=== PATIENT | female | born 1975 | race American Indian/Alaskan Native ===

== ENCOUNTER 2017-09-26 21:21 | Emergency (ER) | payer MEDICARE ==
[2017-09-26 22:21] VITALS: BP 135/85
[2017-09-26] MEDS ORDERED: D50W (25GM) Syringe IV ONE (23:54)
== END 2017-09-27 04:31 | disposition left against medical advice (07) ==
LOC: ED 21:21
DX: J02.9 Acute pharyngitis, unspecified (principal); Z53.21 Procedure and treatment not carried out due to patient leaving prior to being seen by health care provider
CPT/HCPCS: 87116; 87430